=== PATIENT | male | born 1985 | race Caucasian/White ===

== ENCOUNTER 2020-09-13 14:12 | Emergency (ER) | payer OTHER ==
[~2020-09-13] VITALS: Ht 172.7 cm; Wt 84.4 kg
[2020-09-13 14:32] VITALS: Ht 172.7 cm; Wt 84.4 kg
[2020-09-13] MEDS ORDERED: IBU600 M2 PO (16:19)
[2020-09-13 16:49] VITALS: BP 142/89
== END 2020-09-13 16:49 | disposition home or self-care (01) ==
LOC: ED 14:12
DX: S09.8XXA Other specified injuries of head, initial encounter (principal); W22.8XXA Striking against or struck by other objects, initial encounter; Y93.89 Activity, other specified; Y92.89 Other specified places as the place of occurrence of the external cause; Y99.8 Other external cause status